=== PATIENT | male | born 1990 | race Two or more races ===

== ENCOUNTER 2016-03-10 15:55 | Emergency (ER) | payer MEDICAID ==
[~2016-03-10] VITALS: Ht 162.6 cm; Wt 74.8 kg
[2016-03-10] MEDS ORDERED: DiphenhydrAMINE 50mg/ml Inj IVP ONE (17:00)
[2016-03-10] MEDS ORDERED: Acetaminophen 650 MG SUPP RECTAL ONE (17:00)
[2016-03-10] MEDS ORDERED: Metoclopramide 10mg/2ml Inj IVP ONE (17:00)
[2016-03-10] MEDS ORDERED: Ketorolac 30mg Inj IV ONE (17:00)
[2016-03-10] MEDS ORDERED: Famotidine 20 MG/ 2ML VIAL IVP ONE (17:00)
[2016-03-10 17:28] VITALS: BP 115/77
[2016-03-10 17:31] LABS: INR 1.1 (0.9-1.1); PROTHROMBIN TIME 10.7 SEC (9.30-11.50)
[2016-03-10 17:35] LABS: APPEARANCE,URINE CLEAR; BASOPHILS % (AUTO) 0.5 % (0.0-2.0); EOSINOPHILS % (AUTO) 0.9 % (0.0-3.0); KETONES,URINE NEGATIVE (NEGATIVE); LEUKOCYTE ESTERASE ,URINE NEGATIVE (NEGATIVE); LYMPHOCYTES % (AUTO) 15.2 % (20.0-45.0); MEAN CORPUSCULAR HEMOGLOBIN 30.1 PG (27.0-31.0); MEAN CORPUSCULAR HGB CONC 33.7 G/DL (32.0-36.0); MEAN CORPUSCULAR VOLUME 89 FL (80-99); MEAN PLATELET VOLUME 6.2 FL (6.5-10.1); MONOCYTES % (AUTO) 4.9 % (1.0-10.0); NEUTROPHILS % (AUTO) 78.4 % (45.0-75.0); NITRITE,URINE NEGATIVE (NEGATIVE); PH,URINE 5 (4.5-8.0); PLATELET COUNT 374 K/UL (150-450); PROTEIN,URINE 1+ (NEGATIVE); RED BLOOD COUNT 5.32 M/UL (4.70-6.10); RED CELL DISTRIBUTION WIDTH 12.3 % (11.6-14.8); UROBILINOGEN,URINE NORMAL MG/DL (0.0-1.0); WHITE BLOOD COUNT 12.4 K/UL (4.8-10.8)
[2016-03-10 17:41] LABS: ALANINE AMINOTRANSFERASE 85 U/L (3-41); ALBUMIN/GLOBULIN RATIO 1.4 (1.0-2.7); ANION GAP 18 (5-15); ASPARTATE AMINO TRANSFERASE 41 U/L (5-40); CALCIUM 9.8 mg/dL (8.6-10.2); CARBON DIOXIDE 21 mEQ/L (20-30); CHLORIDE 100 mEQ/L (98-107); CREATININE 0.8 mg/dL (0.7-1.2); GLOMERULAR FILTRATION RATE > 60 mL/min (>60); HEMOLYSIS 3; LIPASE 50 U/L (< 60); POTASSIUM 4.3 mEQ/L (3.4-4.9); RBC,URINE 20-30 /HPF (0 - 0); SODIUM 139 mEQ/L (135-145); TOTAL PROTEIN 8.4 g/dL (6.6-8.7)
[2016-03-10 17:42] LABS: BACTERIA,URINE FEW /HPF; MUCUS,URINE MANY /LPF (NONE/OCC); WBC,URINE 0-2 /HPF (0 - 0)
[2016-03-10] MEDS ORDERED: ZOFRAN ODT4 MG ORAL (19:06)
[2016-03-10] MEDS ORDERED: PEPCID20 MG ORAL (19:06)
[2016-03-10] MEDS ORDERED: TYLENOL325 MG ORAL (19:06)
[2016-03-10] MEDS ORDERED: IBUPROFEN600 MG ORAL (19:06)
[2016-03-10 19:11] VITALS: BP 116/79
--- NOTE | 2016-03-11 01:27 | Emergency Room Report ---
History of Present Illness General Chief Complaint: Abdominal Pain Source: Patient Present Illness HPI Patient presents with abdominal pain which began last night 3-4 am. Fairly constant. Mid abdomen. Now 8/10, aching pressure. Vomit yellow bile, no blood. No diarrhea, melena. Passing gas. Chills without fever. No dysuria. Now more in LUQ and radiate to back. No meds taken. Some pain in RLQ. S/P marietta. H/O pancreatitis. In drug treatment program. Alcohol and opiate use. No dysuria, URI sy, cough, chest pain, joint pain, rashes. Allergies: Coded Allergies: MORPHINE (Verified Allergy, Unknown, 03/10/16) Patient History Past Medical History: see triage record Social History: Reports: alcohol use, drug use Social History Narrative in drug and alcohol rehab Reviewed Nursing Documentation: PMH: Agreed, PSxH: Agreed Nursing Documentation-PMH Past Medical History: No History, Except For Review of Systems All Other Systems: negative except mentioned in HPI Physical Exam Vital Signs Date Time Temp Pulse Resp B/P Pulse Ox O2 Delivery O2 Flow Rate FiO2 03/10/16 16:26 98.1 109 14 130/75 99 Room Air Sp02 EP Interpretation: reviewed, normal General Appearance: well appearing, no apparent distress, GCS 15 Head: normocephalic Eyes: bilateral eye PERRL, bilateral eye normal inspection ENT: moist mucus membranes Neck: supple Respiratory: lungs clear, normal breath sounds Cardiovascular #1: regular rate, rhythm Cardiovascular #2: 2+ radial (R) Gastrointestinal: soft, non-distended, no rebound, tenderness - diffuse, more possibly upper abdomen Musculoskeletal: back normal, gait/station normal, normal range of motion Neurologic: alert, oriented x3, grossly normal Psychiatric: mood/affect normal Skin: normal inspection, warm/dry Medical Decision Making Diagnostic Impression: Primary Impression: Abdominal pain Qualified Codes: R10.9 - Unspecified abdominal pain ER Course Patient presents with abdominal pain. DDx: appendicitis, pancreatitis, GERD, PUD, gastritis, diverticulitis, viral syndrome amongst others. Needs evaluation with labs, UA. Will treat with non-opiate meds initially. Pain initially improved then somewhat worsened. As WBC = [address] of abdomen[address] CT negative. Pain 5/10 "tolerable" and better. Discussed that we are observing patient at home and to return if worse. Patient stable for outpatient observation and treatment. Laboratory Tests Test 03/10/16 17:08 White Blood Count 12.4 K/UL (4.8-10.8) H Red Blood Count 5.32 M/UL (4.70-6.10) Hemoglobin 16.0 G/DL (14.2-18.0) Hematocrit 47.5 % (42.0-52.0) Mean Corpuscular Volume 89 FL (80-99) Mean Corpuscular Hemoglobin 30.1 PG (27.0-31.0) Mean Corpuscular Hemoglobin Concent 33.7 G/DL (32.0-36.0) Red Cell Distribution Width 12.3 % (11.6-14.8) Platelet Count 374 K/UL (150-450) Mean Platelet Volume 6.2 FL (6.5-10.1) L Neutrophils (%) (Auto) 78.4 % (45.0-75.0) H Lymphocytes (%) (Auto) 15.2 % (20.0-45.0) L Monocytes (%) (Auto) 4.9 % (1.0-10.0) Eosinophils (%) (Auto) 0.9 % (0.0-3.0) Basophils (%) (Auto) 0.5 % (0.0-2.0) Prothrombin Time 10.7 SEC (9.30-11.50) Prothrombin Time INR 1.1 (0.9-1.1) PTT 27 SEC (23-33) Urine Color Yellow Urine Appearance Clear Urine pH 5 (4.5-8.0) Urine Specific [place] 1.020 (1.005-1.035) Urine Protein 1+ (NEGATIVE) H Urine Glucose (UA) Negative (NEGATIVE) Urine Ketones Negative (NEGATIVE) Urine Occult Blood 4+ (NEGATIVE) H Urine Nitrite Negative (NEGATIVE) Urine Bilirubin Negative (NEGATIVE) Urine Urobilinogen Normal MG/DL (0.0-1.0) Urine Leukocyte Esterase Negative (NEGATIVE) Urine RBC 20-30 /HPF (0 - 0) H Urine WBC 0-2 /HPF (0 - 0) Urine Squamous Epithelial Cells None /LPF (NONE/OCC) Urine Bacteria Few /HPF (NONE) Urine Mucus Many /LPF (NONE/OCC) H Sodium Level 139 mEQ/L (135-145) Potassium Level 4.3 mEQ/L (3.4-4.9) Chloride Level 100 mEQ/L (98-107) Carbon Dioxide Level 21 mEQ/L (20-30) Anion Gap 18 (5-15) H Blood Urea Nitrogen 21 mg/dL (7-23) Creatinine 0.8 mg/dL (0.7-1.2) Estimate Glomerular Filtration Rate > 60 mL/min (>60) Glucose Level 104 mg/dL (74-106) Calcium Level 9.8 mg/dL (8.6-10.2) Total Bilirubin 0.6 mg/dL (0.0-1.2) Aspartate Amino Transferase (AST) 41 U/L (5-40) H Alanine Aminotransferase (ALT) 85 U/L (3-41) H Alkaline Phosphatase 69 U/L (40-129) Total Protein 8.4 g/dL (6.6-8.7) Albumin 4.9 g/dL (3.5-5.2) Globulin 3.5 g/dL Albumin/Globulin Ratio 1.4 (1.0-2.7) Lipase 50 U/L (< 60) CT/MRI/US Diagnostic Results CT/MRI/US Diagnostic Results : Imaging Test Ordered: abdomen and pelvis Impression no surgical pathology Last Vital Signs Date Time Temp Pulse Resp B/P Pulse Ox O2 Delivery O2 Flow Rate FiO2 03/10/16 19:11 98.4 85 19 116/79 99 Room Air Status: improved Disposition: HOME, SELF-CARE Condition: Improved Scripts Acetaminophen (Tylenol) 325 Mg Tablet 650 MG ORAL Q6H Y for Prn Pain/Headache/Temp > 101, #30 TAB 0 Refills Prov: Jim Luu M.D. 03/10/16 Ondansetron Odt* (ZOFRAN ODT*) 4 Mg Tab.rapdis 4 MG ORAL Q8H Y for Nausea & Vomiting, #8 TAB 1 Refill Prov: Jim Luu M.D. 03/10/16 Famotidine (PEPCID) 20 Mg Tablet 20 MG ORAL DAILY, #14 TAB 0 Refills Prov: Jim Luu M.D. 03/10/16 Ibuprofen* (MOTRIN*) 600 Mg Tablet 600 MG ORAL Q6H Y for For Pain, #20 TAB Prov: Jim Luu M.D. 03/10/16 Referrals: NOT CHOSEN [facility]/,REFERRING (PCP) Patient Instructions: Abdominal Pain, Adult Additional Instructions: OK to take tylenol. Return if this worsens. See your MD soon. Jim Luu M.D. Mar 11, 2016 01:27
--- NOTE | 2016-03-11 09:06 | Diagnostic Imaging Report ---
Indication: Abdominal pain Technique: Continuous helical transaxial imaging of the abdomen and pelvis was obtained from the lung bases to the pubic symphysis during intravenous contrast administration. Coronal 2-D reformats were also obtained. Study obtained in a Siemens sensation [address] Total Dose length Product (DLP): [address] Dose Index Volume (CTDIvol): 17 mGy Comparison: None Findings: Lung bases are clear. Cholecystectomy noted. There are small punctate and curvilinear calcifications within the liver, etiology of which is not known. These may be on the basis of old granulomatous disease. Portal vein enhances normally. 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 There is no hydronephrosis. There is no hydronephrosis. The appendix is normal. No free fluid or free air identified. Bladder is unremarkable. Liver and spleen and pancreas appear unremarkable. Impression: No acute disease Curvilinear high density foci noted within the liver. These are probably calcifications. The nature of the chest patient is unknown but likely on the basis of prior granulomatous disease. Status post cholecystectomy The CT scanner at [facility] is accredited by the [employer] and the scans are performed using protocols designed to limit radiation exposure to as low as reasonably achievable to attain images of sufficient resolution adequate for diagnostic evaluation.
== END 2016-03-10 19:22 | disposition home or self-care (01) ==
LOC: EMR 16:55
DX: R10.12 Left upper quadrant pain (principal); R10.11 Right upper quadrant pain; Z88.6 Allergy status to analgesic agent; Z90.49 Acquired absence of other specified parts of digestive tract
CPT/HCPCS: 36415; 74177; 80053; 81003; 83690; 85025; 85610; 85730; 96374; 96375; 99284; J1200; J1885; J2405; J2765; Q9967; S0028